=== PATIENT | male | born 1950 | race Caucasian/White ===

== ENCOUNTER → 2017-04-15 | Outpatient (CLI) | payer MEDICARE, OTHER ==
[~2017-04-15] MED LIST: BARIUM SUSPENSION 2.1% (VANILLA SILQ) 450 ML PO ONE; CATHETER FLUSH 10 ML SYR IV PRN; IOHEXOL 350 MG/ML 100 ML (OMNIPAQUE 350) VIAL IV ONE; NS 100 ML (IVPB) BAG IV ONE
--- NOTE | 2017-04-15 13:22 | Diagnostic Imaging Report ---
PROCEDURE: CT abdomen and pelvis with contrast. TECHNIQUE: Multiple contiguous axial images were obtained through the abdomen and pelvis after administration of intravenous contrast. INDICATION: Prostate CA. Previous hernia repair. FINDINGS: The lung bases are clear. The liver appears normal. The gallbladder and bile ducts are normal. The pancreas is normal. The spleen is normal. The adrenal glands show mild hypertrophic changes. There is a fatty nodule in the right adrenal gland measuring 2 cm which is well-circumscribed. This is predominantly fatty in nature with mean Hounsfield unit of 20 on postcontrast images. The kidneys appear normal. The aorta and abdominal vessels enhance in normal fashion. Aorta is atherosclerotic without aneurysm. No intra-abdominal adenopathy demonstrated. Oral contrast is present in the stomach and small bowel which are nondistended. There is a small hiatal hernia present. The colon shows normal stool and gas pattern. No evidence of diverticulitis. The bladder is moderately distended with smooth bladder wall. Prostate is enlarged. Seminal vesicles appear normal. The the tissue planes within the pelvis appear to be well preserved. No iliac chain adenopathy is demonstrated. No blastic bony lesion. IMPRESSION: 1. The prostate is enlarged. No adenopathy is demonstrated. 2. No bony lesions demonstrated. 3. Atherosclerotic changes of the aorta without aneurysm. 4. 2 cm well-circumscribed fatty lesion in the right adrenal gland most likely representing benign adenoma. Dictated by: Dictated on workstation # [id number]
--- NOTE | 2017-04-15 19:57 | Diagnostic Imaging Report ---
Whole body bone scan. Technique: After the intravenous administration of 26.8 mCi of Technetium 99m MDP, whole body delayed phase bone scan images were obtained with lateral views of the head and neck and the chest regions. Indication: Prostate cancer Findings: Normal distribution of the tracer in the bones is seen with superimposed degenerative related mild activity seen in the shoulders, cervical spine and to a lesser extent in other joints without suspicious intense foci of increased activity in a pattern to suggest metastasis noted. Renal and bladder uptake from the excretion seen. IMPRESSION: No scintigraphic evidence of osseous metastasis. Dictated by: Dictated on workstation # [id number]
== END ==
LOC: EDSEX 10:47 → CARD 10:47
PROVIDERS: ATTEND Urology
DX: C61 Malignant neoplasm of prostate (principal)
CPT/HCPCS: 74177; 78306

== ENCOUNTER 2017-05-24 13:48 | Outpatient (RCR) | payer MEDICARE, OTHER ==
[2017-08-02] MEDS ORDERED: CHOL10003 PO (14:23)
[2017-08-02] MEDS ORDERED: ATEN50TA PO (14:23)
[2017-08-02] MEDS ORDERED: MULT-1029 PO (14:23)
[2017-08-02] MEDS ORDERED: DEXT1TAB3 PO (14:23)
[2017-08-02] MEDS ORDERED: AMLO5TAB2 PO (14:23)
[2017-08-02] MEDS ORDERED: LISI1TAB8 PO (14:23)
[2017-08-02] MEDS ORDERED: GABA-488 PO (14:23)
[2017-08-02] MEDS ORDERED: ASPI-586 PO (14:23)
[2017-08-05] MEDS ORDERED: HYDR-34 PO (09:34)
[2017-08-05] MEDS ORDERED: CIPR-225 PO (09:36)
== END 2017-08-22 | disposition home or self-care (01) ==
LOC: ONC 13:48
PROVIDERS: ATTEND Radiology Radiation Oncology
DX: C61 Malignant neoplasm of prostate (principal)
CPT/HCPCS: 99214

== ENCOUNTER 2017-08-02 05:38 | Outpatient (CLI) | payer MEDICARE, OTHER ==
[~2017-08-02] VITALS: Ht 176.5 cm; Wt 73.0 kg
[2017-08-02 14:15] VITALS: BP 161/92
[2017-08-02] MEDS ORDERED: ATEN50TA PO (14:23)
[2017-08-02] MEDS ORDERED: ASPI-586 PO (14:23)
[2017-08-02] MEDS ORDERED: AMLO5TAB2 PO (14:23)
[2017-08-02] MEDS ORDERED: MULT-1029 PO (14:23)
[2017-08-02] MEDS ORDERED: GABA-488 PO (14:23)
[2017-08-02] MEDS ORDERED: DEXT1TAB3 PO (14:23)
[2017-08-02] MEDS ORDERED: CHOL10003 PO (14:23)
[2017-08-02] MEDS ORDERED: LISI1TAB8 PO (14:23)
[2017-08-02 15:01] LABS: BASOPHILS # (AUTO) 0.1 10^3/uL (0.0-0.1); BASOPHILS % (AUTO) 1 % (0-10); EOSINOPHILS # (AUTO) 0.3 10^3/uL (0.0-0.3); EOSINOPHILS % (AUTO) 3 % (0-10); HEMATOCRIT 44 % (40-54); HEMOGLOBIN 15.5 G/DL (13.3-17.7); LYMPHOCYTES # (AUTO) 2.1 X 10^3 (1.0-4.0); LYMPHOCYTES % (AUTO) 26 % (12-44); MEAN CORPUSCULAR HEMOGLOBIN 34 PG (25-34); MEAN CORPUSCULAR HGB CONC 35 G/DL (32-36); MEAN CORPUSCULAR VOLUME 96 FL (80-99); MEAN PLATELET VOLUME 10.2 FL (7.4-10.4); MONOCYTES # (AUTO) 1.3 X 10^3 (0.0-1.0); MONOCYTES % (AUTO) 15 % (0-12); NEUTROPHILS # (AUTO) 4.5 X 10^3 (1.8-7.8); NEUTROPHILS % (AUTO) 55 % (42-75); PLATELET COUNT 214 10^3/uL (130-400); RED BLOOD COUNT 4.58 10^6/uL (4.35-5.85); RED CELL DISTRIBUTION WIDTH 12.9 % (10.0-14.5); WHITE BLOOD COUNT 8.2 10^3/uL (4.3-11.0)
[2017-08-02 15:32] LABS: BUN/CREATININE RATIO 13; CALCIUM 9.7 MG/DL (8.5-10.1); CARBON DIOXIDE 28 MMOL/L (21-32); CHLORIDE 98 MMOL/L (98-107); CREATININE SERUM 1.15 MG/DL (0.60-1.30); GFR ESTIMATED > 60; GLUCOSE 107 MG/DL (70-105); POTASSIUM 3.6 MMOL/L (3.6-5.0); SODIUM 135 MMOL/L (135-145)
== END 2017-08-02 15:35 | disposition home or self-care (01) ==
LOC: PREOP 05:38
PROVIDERS: ATTEND Urology
DX: Z01.812 Encounter for preprocedural laboratory examination (principal); Z11.2 Encounter for screening for other bacterial diseases; C61 Malignant neoplasm of prostate
CPT/HCPCS: 36415; 80048; 85025; 87081; 93005

== ENCOUNTER → 2020-03-21 | Outpatient (CLI) | payer MEDICARE, OTHER ==
[~2020-03-21] MED LIST changes: +AMLO-250 PO; +ASPI-586 PO; +ATEN50TA PO; -BARIUM SUSPENSION 2.1% (VANILLA SILQ) 450 ML PO ONE; -CATHETER FLUSH 10 ML SYR IV PRN; +CHOL10003 PO; +CIPR-225 PO; +DEXT1TAB3 PO; +GABA-488 PO; +HYDR-34 PO; -IOHEXOL 350 MG/ML 100 ML (OMNIPAQUE 350) VIAL IV ONE; +LISI1TAB46 PO; +MULT-1029 PO; -NS 100 ML (IVPB) BAG IV ONE
--- NOTE | 2020-03-21 13:53 | Diagnostic Imaging Report ---
CT CHEST SCREENING WO TECHNIQUE: Low-dose unenhanced CT of the chest was performed according to the screening protocol. Coronal MIP and sagittal MPR reformats are created. Automatic exposure controls were utilized to keep dose as low as reasonably achievable. INDICATION: 14-aruk-mhwl history of smoking. Current smoker. COMPARISON: None available. FINDINGS: Pulmonary findings: Left upper lobe spiculated 10 mm pulmonary nodule (image 30, series 2) is highly suspicious for primary lung cancer. There are few left upper lobe smaller nodules, largest of these measuring 3 mm (image 45). Scattered small airways mucus plugging in the superior segment of right lower lobe. Moderate centrilobular emphysema. Extrapulmonary findings: No pleural effusion or axillary lymphadenopathy. No mediastinal, discrete hilar or juxtaphrenic lymphadenopathy. Heart is normal in size without pericardial effusion. Extensive coronary artery calcifications are present. Low-attenuation right adrenal nodule is indeterminate but likely a benign adenoma. No lytic or blastic skeletal lesions. IMPRESSION: 1. Left upper lobe spiculated pulmonary nodule measures 10 mm and is highly concerning for primary lung cancer. Recommend PET/CT and/or tissue sampling for further assessment. Lung-RADS category: 4X - Suspicious Dictated by: Dictated on workstation # [id number]
== END ==
LOC: RAD 12:36
PROVIDERS: ATTEND Family Medicine
DX: R91.1 Solitary pulmonary nodule (principal); F17.210 Nicotine dependence, cigarettes, uncomplicated

== ENCOUNTER → 2020-04-01 | Outpatient (CLI) | payer MEDICARE, OTHER ==
--- NOTE | 2020-04-01 15:05 | Diagnostic Imaging Report ---
INDICATION: Spiculated pulmonary nodule noted on CT screening study. This study is performed for further evaluation. Serum blood glucose level at the time of injection is 108 mg/dL. Patient was administered 14.3 mCi F18-FDG intravenously and whole body PET imaging was performed. Noncontrast CT was performed for attenuation correction and anatomic correlation. COMPARISON: No prior PET/CT studies are available for comparison. Comparison is made with a low-dose CT chest screening study from 03/21/2020. There is symmetric activity throughout the brain. The soft tissues of the neck are unremarkable. No hypermetabolism is identified. No definite mediastinal or hilar hypermetabolism is seen. The previously noted nodule in the left upper lobe does not appear to be hypermetabolic. No pulmonary parenchymal hypermetabolism is identified. Physiologic uptake of activity by the gastrointestinal and genitourinary tracts is seen. No suspicious hypermetabolic foci in the abdomen or pelvis are identified. Lower extremities are unremarkable. IMPRESSION: Unremarkable whole body PET/CT study. Specifically, the spiculated nodule noted on recent screening chest CT does not demonstrate hypermetabolism. This may be a benign nodule. Continued close CT follow-up is recommended with repeat study in 3-6 months to confirm stability. Dictated by: Dictated on workstation # [id number]
== END ==
LOC: RAD 11:00
PROVIDERS: ATTEND Family Medicine
DX: R91.1 Solitary pulmonary nodule (principal)
CPT/HCPCS: 78816; A9552

== ENCOUNTER → 2020-07-10 | Outpatient (CLI) | payer MEDICARE, OTHER | LOC: LABNPT 06:44 | PROVIDERS: ATTEND Thoracic Surgery (Cardiothoracic Vascular Surgery) | DX: Z20.822 Contact with and (suspected) exposure to COVID-19 (principal) | CPT/HCPCS: 87635 ==

== ENCOUNTER → 2021-05-22 | Outpatient (CLI) | payer MEDICARE, OTHER ==
--- NOTE | 2021-05-22 11:49 | Diagnostic Imaging Report ---
CT Lung Screening INDICATION:60 pack year smoking history TECHNIQUE: Noncontrast, low-dose CT imaging performed according to the lung cancer screening protocol. Auto Exposure Controls were utilize during the CT exam to meet ALARA standards for radiation dose reduction. COMPARISON:03/21/2020 FINDINGS:The previous CT low-dose lung screening exam of 03/21/2020 noted a 1.0 x 1.2 cm spiculated pulmonary nodule in the left apex. This finding was felt to be highly concerning for malignancy. Reportedly in the interval since the prior exam that lung nodule has been resected. The results of the surgical procedure however are not known to me. On this exam there is now a 1.0 x 2.3 cm elliptical soft tissue density with some spiculation in the left upper lung. This finding may well be secondary to scar formation from a prior surgical procedure. The possibility that this is neoplastic in nature would be less likely but cannot be entirely excluded. If further study is desired, then PET CT would be recommended. If the PET/CT exam is not performed, short-term (3 month) followup CT chest exam would be recommended. Also, in the interval since the prior study coarse interstitial densities have developed about the left suprahilar region. I suspect that these findings are also postsurgical in nature and there is a row of surgical sutures in this region as well. The lungs are otherwise generally clear. There is no evidence for failure, pneumonia or for pleural effusion. The heart size is within normal limits and stable when compared to the prior exam. As noted previously extensive coronary artery calcifications are noted. The aorta is not dilated. There is no obvious mediastinal or hilar adenopathy. The thyroid gland is generally unremarkable. The sections through the upper abdomen failed to show any sign of an acute abdomen right. There is now a 3 cm hiatal hernia however. The bone windows are unremarkable for fracture or for destructive lesion. The mild wedge compression deformities in the midthoracic spine seen previously are again evident and no different. IMPRESSION: 1. In the interval since the prior exam the nodule in the left apex has been surgically removed. There is now 1.2 x 2.3 cm elliptical parenchymal density in this area. This finding may was secondary to scar formation although the possibility that this is neoplastic in nature cannot be entirely excluded. Recommendations as above. 2. There are also postsurgical changes involving the left suprahilar region. 3. There is no other parenchymal lung mass noted. 4. There is no sign of an acute cardiopulmonary abnormality. 5. There is coronary artery disease. IMPRESSION:4B LUNG-RADS CATEGORY: MODIFIER: OTHER SIGNIFICANT FINDINGS: Dictated by: Dictated on workstation # [id number]
== END ==
LOC: RAD 10:15
PROVIDERS: ATTEND Family Medicine
DX: Z12.2 Encounter for screening for malignant neoplasm of respiratory organs (principal); R91.1 Solitary pulmonary nodule; I25.10 Atherosclerotic heart disease of native coronary artery without angina pectoris; Z87.891 Personal history of nicotine dependence; Z98.890 Other specified postprocedural states
CPT/HCPCS: 71271

== ENCOUNTER → 2021-10-07 | Outpatient (CLI) | payer MEDICARE, OTHER ==
[~2021-10-07] MED LIST changes: +CATHETER FLUSH 10 ML SYR IVP PRN; +REGADENOSON 0.4 MG/5 ML SYR (LEXISCAN) IV ONE
[2021-10-07] MEDS: CATHETER FLUSH 10 ML SYR IVP PRN ×2 (08:24→09:47)
[2021-10-07 09:43] VITALS: BP 156/82
--- NOTE | 2021-10-07 13:29 | Cardiology Stress Test Report ---
Stress Test Report Date of Procedure/Referring: Date of Procedure: October 07, 2021 PCP Neetu Olivares MD Admitting Physician Admitting Physician: Attending Physician: Chantell Chairez MD Indications: CP Baseline Heart Rate: 66 Baseline Blood Pressure: Blood Pressure Systolic: 156 Blood Pressure Diastolic: 82 Baseline Vitals Vital Signs Date Time Temp Pulse Resp B/P (MAP) Pulse Ox O2 Delivery O2 Flow Rate FiO2 10/07/21 09:43 70 16 156/82 (106) 98 Room Air Baseline EKG: Baseline EKG: RBBB Summary After explaining the procedure to the patient, he signed a consent and then brought to the stress nuclear laboratory. Patient received 0.4 mg Lexiscan for stress test, ECG, heart rate and blood pressure were monitored continuously. Resting and stress dose of radio tracer were injected, imaging was acquired and reviewed in short axis, horizontal long axis and vertical long axis views. TID: 1.11 SSS: 4 SDS: 4 EF: 66 1. Patient tolerated Lexiscan well 2. Baseline right bundle branch block persisted during test 3. Diaphragmatic attenuation with mild reversible ischemia involving the mid to apical inferior wall 4. Normal left ventricular size, ejection fraction 66% Copy Copies To 1: NEETU OLIVARES MD, BASHAR J MD October 07, 2021 13:29
== END ==
LOC: CARD 08:30
PROVIDERS: ATTEND Internal Medicine Cardiovascular Disease
DX: I25.10 Atherosclerotic heart disease of native coronary artery without angina pectoris (principal); I10 Essential (primary) hypertension
CPT/HCPCS: 78452; 93017; A9502

== ENCOUNTER 2021-10-16 08:00 | Day surgery (SDC) | payer MEDICARE, OTHER ==
[2021-10-16] VITALS (10 sets, daily range): BP systolic 124–146; BP diastolic 63–85
[~2021-10-16] VITALS: Ht 176.5 cm; Wt 80.7 kg
[~2021-10-16 08:00] MED LIST changes: -CATHETER FLUSH 10 ML SYR IVP PRN; -DEXT1TAB3 PO; +DEXT1TAB5 PO; +HEParin (CATH LAB) 2,000 ML IV ONE; +LIDOCAINE 1% INJ 20 ML VIAL ONE; +NS IV 1000 ML 1,000 ML IV SCH; +NS IV 1000 ML 1,000 ML ONE; -REGADENOSON 0.4 MG/5 ML SYR (LEXISCAN) IV ONE
[2021-10-16] MEDS ORDERED: LISI20TA26 PO (08:11)
[2021-10-16] MEDS ORDERED: FURO20TA4 PO (08:11)
[2021-10-16] MEDS ORDERED: POTA10TA37 PO (08:11)
[2021-10-16 08:16] LABS: INR 1.4 (0.8-1.4); PROTHROMBIN TIME PATIENT 17.1 SEC (12.2-14.7)
[2021-10-16 08:23] LABS: CHOLESTEROL 126 MG/DL (< 200); HDL CHOLESTEROL 45 MG/DL (40-60); TRIGLYCERIDES 64 MG/DL (<150); VLDL CHOLESTEROL 13 MG/DL (5-40)
--- NOTE | 2021-10-16 08:38 | Conscious Sedation/ASA ---
Conscious Sedation Pre-Proced Time 08:38 ASA Score 3 For ASA 3 and 4: Consider anesthesia and medical clearance. Also, for patients with a history of failed moderate sedation consider anesthesia. Airway Lungs Heart ASA score ASA 1: a normal healthy patient ASA 2: a patient with a mild systemic disease (mid diabetes, controlled hypertension, obesity x ASA 3: a patient with a severe systemic disease that limits activity (angina, COPD, prior Myocardial infarction) ASA 4: a patient with an incapacitating disease that is a constant threat to life (CHF, renal failure) ASA 5: a moribund patient not expected to survive 24 hrs. (ruptured aneurysm) ASA 6: a declared brain- patient whose organs are being harvested. For emergent operations, add the letter E after the classification Mallampati Classification Grade 3 Sedation Plan Analgesia, Amnesia, Plan communicated to team members, Discussed options with patient/fam, Discussed risks with patient/fam The patient is an appropriate candidate to undergo the planned procedure, sedation, and anesthesia. The patient immediately re-assessed prior to indication. TORIN ARGUETA MD Oct 16, 2021 08:38
[2021-10-16] MEDS ORDERED: fentaNYL INJ 100 MCG/2 ML AMP ONE (08:43)
[2021-10-16] MEDS ORDERED: MIDAZOLAM 5 MG/5 ML (VERSED) VIAL ONE (08:43)
--- NOTE | 2021-10-16 08:44 | Diagnostic Imaging Report ---
INDICATION: Abnormal stress test. Single AP view of the chest is obtained with comparison made study of 05/22/2021 FINDINGS: There is mild cardiomegaly. Pulmonary vascularity is unremarkable. There is no pneumothorax or consolidation. The lungs appear clear. IMPRESSION: No acute abnormality. Dictated by: Dictated on workstation # [id number]
--- NOTE | 2021-10-16 09:27 | Discharge Inst-Post CATH ---
Discharge Inst-CATH/EP Problems Reviewed?: Yes Post Cardiac Cath/EP D/C Inst Follow Up/Plan Appointment with Dr. Chairez's office in 2 to 4 weeks <b>CARDIAC CATH/EP PROCEDURE DISCHARGE INSTRUCTIONS</b> ACTIVITY * Go Home directly and rest. * Limit activity of the leg (or wrist if it was used) for 7 days including aer obics, swimming, jogging, bicycling, etc. * Restrict stair-climbing for 7 days if possible, if not, climb up with your non-cath leg, then bring together on the same step. * Avoid lifting, pushing, pulling or excessive movement of the affected extremi ty for 7 days. * Customary sexual activity may be resumed after 2 days-use caution not to use a position that strains or causes pain to the affected extremity. * No driving for 24 hours. * NO SMOKING. * Avoid straining for bowel movements for 7 days. * Gentle walking on level ground is allowed. * Returning to work will depend on the type of procedure and the results. Your doctor will discuss this with you. CALL YOUR DOCTOR FOR ANY OF THE FOLLOWING: *If bleeding from the puncture site occurs- Apply gentle pressure to site with clean cloth and call your doctor or EMS. * If a knot or lump forms under the skin, increases in size, or causes pain. * If bruising appears to be worsening or moving further down your leg instead of disappearing. * Temperature above 101 F. CARE OF YOUR GROIN INCISION; * Bruising or purple discoloration of the skin near the puncture site is common. * You may shower only, no bathtub bathing for 5 days. Be careful to avoid slipping as your leg may feel stiff. * If a closure device was used on your femoral artery, please see the attached guide regarding care of the device and your leg. * Leave dressing on FOR 24 hours. CARE OF YOUR WRIST INCISION; * Bruising or purple discoloration of the skin near the puncture site is common. * You may shower. * DO NOT submerge wrist. * Leave dressing on FOR 24 hours. TORIN CHAIREZ MD Oct 16, 2021 09:27
[2021-10-16] MEDS ORDERED: NS IV 1000 ML 1,000 ML IV SCH (09:30)
[2021-10-16] MEDS ORDERED: PATIENT MAY USE OWN MEDS, ALL PO SCH (09:30)
--- NOTE | 2021-10-16 09:30 | Cardiac Cath Report ---
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 After explaining the procedure to the patient, all pros and cons were explained, all questions were answered. The patient signed the consent and then he was placed on the cardiac catheterization laboratory. Groin was prepped SL fashion local anesthesia was used. Sheath placed in the right femoral artery. Emre right and left catheter were used to access the coronary system. Emre right was used to cross the aortic valve to the left ventricular cavity. Left ventriculogram was not done, pressure was measured At the end of the procedure the sheath was removed. Closure device was deployed FINDINGS: Hemodynamics LV 103/15, end-diastolic pressure 15 Aorta 128/59 mean of 86 ANATOMY: Left Main is free of obstructive disease Left Anterior Descending is small in size with mild disease nonobstructive disease Left Circumflex has mild disease nonobstructive disease Right Coronary Artery has mild disease nonobstructive disease LV Gram was not done, pressure was measured CONCLUSION: 1. Mild coronary artery disease nonobstructive disease 2. Normal left ventricular end-diastolic pressure DISCUSSION AND RECOMMENDATION: Abnormal stress test is probably due to extracardiac attenuation, conservative management is recommended Anesthesia Type: Conscious Sedation Estimated blood loss (mL): 10 ml Contrast Amount: 34 ml Total Radiation Dose: 166 mGy Post-Procedure Diagnosis Post-operative diagnosis: Chest pain Coronary artery disease Hypertension Hyperlipidemia TORIN ARGUETA MD Oct 16, 2021 09:29
== END 2021-10-16 13:45 | disposition home or self-care (01) ==
LOC: CATH 08:00 → CSD 09:43 → CATH 13:45
PROVIDERS: ATTEND Internal Medicine Cardiovascular Disease
DX: I25.10 Atherosclerotic heart disease of native coronary artery without angina pectoris (principal); I10 Essential (primary) hypertension; E78.5 Hyperlipidemia, unspecified; I08.1 Rheumatic disorders of both mitral and tricuspid valves; I27.20 Pulmonary hypertension, unspecified; J44.9 Chronic obstructive pulmonary disease, unspecified; R91.1 Solitary pulmonary nodule; I87.2 Venous insufficiency (chronic) (peripheral); I45.10 Unspecified right bundle-branch block; I65.23 Occlusion and stenosis of bilateral carotid arteries; Z87.891 Personal history of nicotine dependence; Z79.899 Other long term (current) drug therapy
CPT/HCPCS: 71045; 80061; 85610; 85730; 87081; 93005; 93458; C1760; C1894; 36415